=== PATIENT | female | born 1950 | race Caucasian/White ===

== ENCOUNTER 2017-09-29 07:30 | Day surgery (SDC) | payer BC ==
--- NOTE | 2017-09-29 07:15 | History and Physical Report ---
DATE: 09/28/2017. CHIEF COMPLAINT AND HISTORY OF CHIEF COMPLAINT: This patient presents with a history of postlaminectomy radiculitis. Her diagnostics confirm hardware fusion in the thoracic and lumbar spine from T10 to L5 and S1. Due to the failure of all therapy, a spinal cord stimulator trial was conducted with up to greater than 75 percent pain control. Due to the failure of therapy and the success of the trial, she presents today for implantation of a permanent system. PAST MEDICAL HISTORY: Hypertension, hypothyroidism, reflux esophagitis. PAST SURGICAL HISTORY: Lumbar spinal surgery, hysterectomy, cervical spine surgery. MEDICATIONS ON ADMISSION: To be provided. ALLERGIES: None listed. SOCIAL HISTORY: Caffeine. FAMILY HISTORY: Hypertension, coronary artery disease, and cancer. REVIEW OF SYSTEMS: The patient is appropriate and in no acute distress. The remainder of the systems review shows glasses, headaches, reflux, degenerative arthritis, fibromyalgia, and depression. PHYSICAL EXAMINATION: General: Height and weight not known. Vital Signs: Not available. Abdomen: Nontender. Musculoskeletal: Current examination shows diffuse tenderness in the cervical spine. Range of motion does produce pain also through the low back and hip area. There is extensive pain across the low back and extending into the lower extremities adjacent to an extensive laminectomy scar. Motor and sensory field functionality is intact across the lower extremities. No focal deficits. Ambulation: No assistive device utilized. Neurologic: Cranial nerves are intact. IMPRESSION: 1. POSTLUMBAR LAMINECTOMY SYNDROME, ICD-10 CODE M96.1. 2. LUMBAR RADICULITIS, ICD-10 CODE M54.16 AND M54.17. PLAN: This patient is here for implantation of a permanent spinal cord stimulator after a successful trial. This is very complicated and difficult anatomy with fusion from T10 down. The trial was inserted at T7-8 which was quite complicated. This has been carefully explained to and discussed with the patient in detail. The potential risks, side effects, and complications include dural puncture and spinal headache, spinal cord injury, nerve root injury, and includes the possibility that we will be unsuccessful in gaining the same stimulation patterns we achieved during the trial. If that happens, the procedure will be aborted and no implant will take place. We will consider the procedure outpatient, although an overnight stay will be evaluated. She has been appropriately instructed, not only by myself but by the [facility] staff. She has been given the appropriate information which includes the risks, side effects, and complications. JOB NUMBER: [id number] cc: Sujit Chaparro D.O. MTDD
[~2017-09-29 07:30] MED LIST: ACETAMINOPHEN 1,000 MG/100 ML BTL IV ONE; CEFAZOLIN 2 Gram 2 GM/50 ML BAG IVPB ONE; FAMOTIDINE 20MG TABLET PO ONE; MECLIZINE 25 MG TABLET PO ONE; METOCLOPRAMIDE 10 MG TABLET PO ONE
[2017-09-29] MEDS ORDERED: FLUMAZENIL 1MG/10ML VIAL IV ONE (07:31)
[2017-09-29] MEDS ORDERED: MIDAZOLAM HCL 2MG/2ML VIAL IV ONE (07:31)
[2017-09-29] MEDS ORDERED: CEFAZOLIN 1G VIAL IM ONE (07:31)
[2017-09-29] MEDS ORDERED: LIDOCAINE 2% MDV (20MG/ML) 20ML VIAL IV ONE (07:31)
[2017-09-29] MEDS ORDERED: LIDOCAINE 1% W/EPI 1:200,000 MPF 30ML SQ ONE (07:31)
[2017-09-29] MEDS ORDERED: FENTANYL PF 100MCG/2ML VIAL IV ONE (07:31)
[2017-09-29] MEDS ORDERED: BUPIVACAINE 0.75% W/EPI MPF 30ML VIAL IVP ONE (07:31)
[2017-09-29] MEDS ORDERED: PROPOFOL 10 MG/ML VIAL IV ONE (07:31)
[2017-09-29] MEDS ORDERED: ACETAMINOPHEN 325 MG TAB PO PRN ×2 (10:26)
[2017-09-29] MEDS ORDERED: OXYCODONE/APAP 10MG-325MG TABLET PO PRN ×2 (10:26)
[2017-09-29] MEDS ORDERED: TEMAZEPAM 15 MG CAPSULE PO PRN ×2 (10:26)
[2017-09-29] MEDS ORDERED: SENNOSIDES/DOCUSATE SODIUM UD CAPSULE PO PRN ×2 (10:26)
[2017-09-29] MEDS ORDERED: HYDROMORPHONE HCL 1 MG/ML SYRINGE IM PRN (10:26)
[2017-09-29] MEDS ORDERED: HYDROMORPHONE HCL 2 MG/ML VIAL IM PRN (10:26)
[2017-09-29] MEDS ORDERED: DIPHENHYDRAMINE HCL IV 50 MG/ML VIAL IVP PRN ×2 (10:26)
[2017-09-29] MEDS ORDERED: HYDROCODONE/APAP 7.5/325MG TABLET PO PRN (10:26)
[2017-09-29] MEDS ORDERED: METOCLOPRAMIDE HCL 10 MG/2 ML VIAL IVP PRN (10:26)
[2017-09-29] MEDS ORDERED: DIPHENHYDRAMINE HCL 25 MG CAPSULE PO PRN (10:26)
[2017-09-29] MEDS ORDERED: AL HYDROX/MAG HYDROX 30ML UD PO PRN (10:26)
[2017-09-29] MEDS ORDERED: METOCLOPRAMIDE 10 MG TABLET PO PRN (10:26)
[2017-09-29] MEDS: HYDROCODONE/APAP 7.5/325MG TABLET PO PRN ×2 (14:06→20:39)
[2017-09-29] MEDS: CEFAZOLIN 2 Gram 2 GM/50 ML BAG IVPB SCH ×2 (17:43→23:53)
--- NOTE | 2017-09-29 20:15 | Operative Note - [place] ---
DATE OF SURGERY: 09/29/17 PREOPERATIVE DIAGNOSES: 1. POST LUMBAR LAMINECTOMY SYNDROME, ICD-10 CODE = M96.1. 2. LUMBAR RADICULITIS, ICD-10 CODE = M54.16 AND M54.17. SURGERY: 1. FLUOROSCOPIC-GUIDED EPIDURAL ACCESS RIGHT T7-8, PLACEMENT OF SPINAL CORD STIMULATOR LEAD 1, A [employer] INFINION 16 WITH 16 ELECTRODES POSITIONED LEFT AT T4. 2. FLUOROSCOPIC-GUIDED EPIDURAL ACCESS RIGHT T8-9, PLACEMENT OF SPINAL CORD STIMULATOR LEAD 2, A [employer] INFINION 16 WITH 6 ELECTRODES POSITIONED RIGHT T4. 3. COMPLEX PROGRAMMING OF LEAD 1, OVER 20 MINUTES FOLLOWED BY COMPLEX PROGRAMMING OF LEAD 2, OVER 20 MINUTES. 4. INCISION, SUBCUTANEOUS DISSECTION, AND ANCHORING OF LEAD 1 AND LEAD 2 TO SUPRASPINOUS FASCIA USING A [employer] LOCKING ANCHOR. 5. INCISION, SUBCUTANEOUS DISSECTION, AND CREATION OF SUBCUTANEOUS POUCH AT RIGHT POSTERIOR GLUTEAL MARGIN FOR PLACEMENT OF GENERATOR IDENTIFIED A [employer] PROGRAMMABLE, RECHARGEABLE. 6. TUNNELING BETWEEN LEAD POUCH. PLACEMENT OF LEADS INTO GENERATOR POUCH, EACH LEAD INTERFACED TO THE GENERATOR. 7. SECURING GENERATOR TO POSTERIOR FASCIA USING NONABSORBABLE SUTURE. PLACEMENT OF LEADS INTO POUCH WITH CLOSURE OF BOTH INCISIONS WITH VICRYL FOR FASCIA, RUNNING SUBCUTICULAR VICRYL FOR SKIN. DERMABOND CLOSURE. 8. COMPLEX RECOVERY ROOM PROGRAMMING INTERNAL GENERATOR HOME USE, TWO STIMULATORS, 20 MINUTES. SURGEON: TOM SANTAMARIA D.O. ANESTHESIA: LOCAL SEDATION. ANESTHESIA PROVIDER: BOOM SERRANO CRNA. INDICATIONS: This patient presents with a history of intractable postlaminectomy radiculitis. Diagnostics confirm pedicle screw and sue fusions from T10 through L5-S1. Due to the failure of all therapy, spinal cord stimulator trials were conducted in the office with 75% pain control. Due to the failure of all therapy and the success of the trial, she presents here today for implantation of a permanent system. SURGERY: Intravenous line, vital sign monitoring, IV sedation, prepped and draped sterile technique. Patient prone. Under imaging and sterile technique, right of the midline, the epidural interspace at T7-8 and 8-9 were marked, infiltrated, and then using two standard needles with sleeves and a loss-of- resistance, the epidural access was accomplished at each. At T7-8, spinal cord stimulator lead 1, a [employer] Infinion 16 with 16 electrodes positioned in the epidural space left of midline at T4. With epidural access right of midline at T8-9, same technique, spinal cord stimulator lead 2, a [employer] Infinion 16 with 6 electrodes, positioned right T4. Complex programming of lead 1 over 20 minutes followed by complex programming of lead 2 over 20 minutes resulting in a complete pattern of stimulation across the back and into the legs with the patient indicating we were in all of the areas of the pain. She was given the option to implant, continue to program, or remove; she opted to implant. Questions were all repeated with the same response. At that point, the skin above and below both needles was infiltrated, incision made , and subcutaneous dissection was conducted to the supraspinous fascia. The needles were removed and each lead was anchored to the supraspinous fascia with a [employer] locking anchor. At the right posterior gluteal margin below the belt line, a site picked by the patient for the generator, skin infiltrated , incision made, and subcutaneous dissection was conducted to form a pouch of suitable size and depth for the generator identified as a [employer] programmable, rechargeable. A tunneling tool was used to carry the leads into the generator pouch and each lead was interfaced with with the generator. Antibiotic irrigation and Bovie for hemostasis. The generator was then secured into the pouch with a nonabsorbable suture. The leads were placed into their own pouch and then both incisions were closed with Vicryl for fascia and running subcuticular Vicryl for skin. A Dermabond closure to approximate the edges of the wound. She was transported to the Recovery Room stable showing no side-effects from the procedure or the sedation. When fully awake and alert, complex programming of the generator in the Recovery Room over 20 minutes performed, re-establishing stimulation and pain control to all of the appropriate areas. She was instructed on the use of this system, provided with information, error messaging, and then prepared for discharge. DISCHARGE INSTRUCTIONS: 1. The sites will remain clean and dry. No showering or bathing in any way that would disrupt dressings. If it happens, contact the clinic. 2. Standard medications resumed, including Levaquin, the antibiotic 500 mg once a day for 14 days. 3. The office will contact the patient at home to set up an appointment for 7 to 10 days for the sites to be evaluated. Until that period of time, she should keep her activities low. No bending, lift, push, or pull. Once seen she will be evaluated for further activity levels. All other instructions provided, numbers to contact if problems given. Medications reviewed and discussed; what she takes on a regular basis, what to start and what to stop. cc: Dr. Jose Angel Meraz JOB NUMBER: [id number] MTDD
[2017-09-29] MEDS: GABAPENTIN 300 MG CAPSULE PO SCH (21:33)
[2017-09-29] MEDS: 0.9 % SODIUM CHLORIDE 10ML SYR IVP SCH (21:35)
[2017-09-29] MEDS ORDERED: MONTELUKAST SODIUM 10MG TABLET PO SCH (22:00)
[2017-09-29] MEDS ORDERED: TRAZODONE 50 MG TABLET PO SCH (22:00)
[2017-09-29] MEDS: DIPHENHYDRAMINE HCL 25 MG CAPSULE PO PRN (23:51)
[2017-09-30] MEDS: DIPHENHYDRAMINE HCL 25 MG CAPSULE PO PRN (03:52)
[2017-09-30] MEDS: CEFAZOLIN 2 Gram 2 GM/50 ML BAG IVPB SCH (08:08)
--- NOTE | 2017-09-30 08:59 | RADIOLOGY REPORT ---
EXAM: AP THORACOLUMBAR SPINE HISTORY: POST SPINAL CORD STIMULATOR IMPLANT. TECHNIQUE: A single AP view of the thoracolumbar spine was obtained. Comparison: AP and lateral lumbar spine series 08/20/17. FINDINGS: Wire density seen extending up to the spine at the upper lumbar region and then ascending up to the approximate T3-T4 level. Extensive lumbar spinal fusion hardware again partially seen. Surgical clips right upper quadrant of the abdomen also present previously. IMPRESSION: SUPERIOR EXTENT OF THE SPINAL CORD STIMULATOR WIRES EXTEND UP TO THE APPROXIMATE T3-T4 INTERSPACE LEVEL. JOB NUMBER: [id number] MTDD
[2017-09-30] MEDS: GABAPENTIN 300 MG CAPSULE PO SCH (09:02)
[2017-09-30] MEDS: HYDROCODONE/APAP 7.5/325MG TABLET PO PRN (09:05)
[2017-09-30] MEDS: 0.9 % SODIUM CHLORIDE 10ML SYR IVP SCH (09:07)
== END 2017-09-30 09:30 | disposition home or self-care (01) ==
LOC: SUR 07:30 → MEDSURG 10:17 → SUR 09-30 09:30
PROVIDERS: ATTEND Pain Medicine Interventional Pain Medicine
DX: M96.1 Postlaminectomy syndrome, not elsewhere classified (principal); M54.16 Radiculopathy, lumbar region; M54.17 Radiculopathy, lumbosacral region; E03.9 Hypothyroidism, unspecified; M06.9 Rheumatoid arthritis, unspecified
CPT/HCPCS: 63685; 63650 ×2; 00300; 95972; 72020; J3490 ×2; J3010; J0690 ×2; C1820; C1883

== ENCOUNTER 2019-09-22 20:13 | Emergency (ER) | payer BC ==
[2019-09-22] MEDS ORDERED: METHYLPREDNISOLONE PF 125MG/VIAL IVP ONE (20:25)
[2019-09-22] MEDS ORDERED: ALBUTEROL SULFATE (0.083%) 2.5 MG/3 ML NEB INH ONE (20:25)
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
[2019-09-22 20:35] LABS: HEMATOCRIT 42.8 % (35.0-47.0); HEMOGLOBIN 13.9 gm/dl (11.6-16.0); MEAN CELL VOLUME 94.9 fl (81-97); MEAN CORPUSCULAR HEMOGLOBIN 30.8 pg (27-33); MEAN CORPUSCULAR HGB CONC 32.5 g/dl (32-36); MEAN PLATELET VOLUME 10.7 fl (7.4-10.4); PLATELET COUNT 242 K/uL (130-400); RED BLOOD COUNT 4.51 M/uL (3.80-5.40); RED CELL DISTRIBUTION WIDTH 13.6 % (11.5-14.5); WHITE BLOOD COUNT W/O DIFF 8.1 K/uL (4.2-12.2)
[2019-09-22] MEDS ORDERED: ALBUTEROL (0.5% CONCENTRATED) 2.5 MG/0.5 ML VIAL.NEB INH ONE (20:36)
[2019-09-22 20:48] LABS: BLOOD UREA NITROGEN 11 mg/dL (8-23); EST GLOMERULAR FILTRATION RATE 59 mL/min
[2019-09-22 20:49] LABS: TOTAL PROTEIN 7.7 g/dL (6.6-8.7)
[2019-09-22 20:51] LABS: GLUCOSE,RANDOM 127 mg/dL (74-109)
[2019-09-22 20:53] LABS: ALB/GLOB RATIO 1.3 (1.1-1.8); ALBUMIN 4.4 g/dL (4.0-5.0); ALT/SGPT 12 U/L (<33); AST/SGOT 20 U/L (10.0-35.0)
[2019-09-22 20:54] LABS: ALKALINE PHOSPHATASE 81 U/L (35-104)
[2019-09-22] MEDS ORDERED: DOXYCYCLINE HYCLATE 100 MG CAPSULE PO ONE (21:13)
--- NOTE | 2019-09-22 21:38 | RADIOLOGY REPORT ---
EXAMINATION: Two View Chest Radiographs EXAM DATE: 09/22/2019 8:59 PM TECHNIQUE: Frontal and lateral views INDICATION: ANGELA COMPARISON: Report from April 18, 2018 for which the images are unavailable on PACS ENCOUNTER: Not applicable FINDINGS: The heart, mediastinum, and pulmonary vasculature are normal. Spinal stimulator is present. Postsurgi radha change of the thoracolumbar spine. Atelectasis at the left lung base. No pneumothorax or pleural effusion. Right lung is clear. IMPRESSION: Atelectasis at the left lung base. Dictated by: Nik Marquez MD on 09/22/2019 9:25 PM. .
== END 2019-09-22 21:45 | disposition home or self-care (01) ==
LOC: ER 20:13
DX: J45.21 Mild intermittent asthma with (acute) exacerbation (principal); R06.02 Shortness of breath
CPT/HCPCS: 71046; 80053; 84484; 85027; 93005; 93010; 94640; 96374; 99284; J2930; J7613